=== PATIENT | female | born 1960 | race Caucasian/White ===

== ENCOUNTER → 2016-06-15 | Day surgery (SDC) | payer BC, MEDICARE ==
[~2016-06-15] MED LIST: ASPIRIN81 M2 PO; BENTYL20 M1 PO; CELEXA20 MG PO; DOXEPIN HCL25 MG PO; ESTRADIOL1 MG PO; FENOFIBRATE160 MG PO; FLEXERIL PO; FLEXERIL10 MG PO; GLUCOPHAGE500 MG; GLUCOPHAGE500 MG PO; LEVOTHYROXINE175 MCG PO; LEVOXYL; LOVAZA1 G PO; NAPROXEN500 M1 PO; NORCO 10/325 TA1 TAB PO; OMEGA-31000 M1 PO; OXYCODONE-ACET1 EAC1 PO; PHENERGAN25 M1 PO; PREMARIN; PROPRANOLOL HCL10 MG PO; SYNTHROID125 PO; TOPAMAX PO; TOPROL XL50 MG PO; TRIGLIDE160 M1 PO; VICODIN 5/500 T1 TAB; VITAMIN B122500 MCG PO; VITAMIN D1000 UNI1 PO; WELLBUTRIN PO; WELLBUTRIN XL150 M1 PO; ZESTRIL2.5 M1 PO; ZETIA; [UNRECOGNIZED DRUG - REMARK]
--- NOTE | ~2016-06-15 | OR ---
Unit #: [id number] #: [id number] Patient: ZAHRA PERAZA [id number] [address] [address] [id number] O MR#: [id number] NAME: ZAHRA PERAZA ROOM: Date of Procedure: 06/15/2016 Admission Date: 06/15/2016 Surgeon: Bret Keith M.D. : 1960 Attending Physician: Bret Keith M.D. Primary Care Physician: Sathya Galan M.D. OPERATIVE REPORT PREOPERATIVE DIAGNOSES Thoracic back pain, thoracic radiculopathy, thoracic disk herniation. POSTOPERATIVE DIAGNOSES Thoracic back pain, thoracic radiculopathy, thoracic disk herniation. PROCEDURE PERFORMED Thoracic epidural steroid injection with intravenous sedation and fluoroscopic guidance for needle localization. INDICATIONS FOR PROCEDURE The patient is a 55-year-old female with previously mentioned diagnosis. She also has back issues following a lumbar fusion and primary issue now there was symptoms consistent with a thoracic radiculopathy due to known T11-12 disk herniation. Plan is give the patient a trial of epidural steroids after having failed other attempts of conservative treatment. Risks and benefits of all have been reviewed. DESCRIPTION OF PROCEDURE The patient was placed in a seated position. Standard monitors were applied. 2 mg of Versed were given for sedation and anxiolysis, which were adequate. Vital signs remained stable. Sterile prep and drape then of the thoracolumbar area was performed. The skin then at the T11-T12 level was localized with 1% lidocaine. An 18-gauge [employer] needle was advanced via loss of resistance technique and fluoroscopic guidance in toward the epidural space. The patient did not complain of pain or paresthesia during needle advancement. After confirming proper positioning with fluoroscopy and radiographic contrast, 80 mg of Depo-Medrol and 4 mL of 0.125% bupivacaine were deposited. The patient tolerated the procedure otherwise well and was discharged to the recovery room in stable condition. Dictated by... Bret Keith M.D. LHP/modl TD: 06/16/2016 02:18 JOB #: [id number] Unit #: [id number] #: [id number] Patient: ZAHRA PERAZA OPERATIVE REPORT Page 1 of 1 X Bret Keith MD X PROCEDURE OPERATIVE NOTE
== END | disposition home or self-care (01) ==
LOC: CCSC 10:01
DX: M51.14 Intervertebral disc disorders with radiculopathy, thoracic region (principal); E11.9 Type 2 diabetes mellitus without complications
CPT/HCPCS: 82947; J1040; J2250

== ENCOUNTER → 2016-06-22 | Day surgery (SDC) | payer BC, MEDICARE ==
--- NOTE | ~2016-06-22 | OR ---
Unit #: [id number] #: [id number] Patient: ZAHRA PERAZA [id number] [address] [place], [place] [address] [id number] O MR#: [id number] NAME: ZAHRA PERAZA ROOM: Date of Procedure: 06/22/2016 Admission Date: 06/22/2016 Surgeon: Bret Keith M.D. : 1960 Attending Physician: Bret Keith M.D. Primary Care Physician: Sathya Galan M.D. OPERATIVE REPORT PREOPERATIVE DIAGNOSES Thoracic disk herniation, thoracic radiculopathy, back pain. POSTOPERATIVE DIAGNOSES Thoracic disk herniation, thoracic radiculopathy, back pain. PROCEDURE PERFORMED Thoracic epidural steroid injection with intravenous sedation under fluoroscopic guidance for needle localization. HISTORY The patient is a 55-year-old female with mid back pain with thoracic radiculopathy, radiating down toward her hips. She has known T11-T12 disk herniation. She failed to settle with conservative treatment. The plan is to give a trial of epidural steroids. Initial injection at the T12 level did not result in substantial change in her symptom complex. We are going to proceed with a repeat injection today at T11, so that it would work somewhat better for her. DESCRIPTION OF PROCEDURE The patient was placed in a seated position. Standard monitors were applied. Sterile prep and drape then of the thoracolumbar area was performed. The skin then at the T11 level was localized with 1% lidocaine. An 18-gauge [employer] needle was then advanced via loss of resistance technique and fluoroscopic guidance in toward the epidural space. After confirming proper positioning with fluoroscopy and radiographic contrast, 80 mg of Depo-Medrol and 4 mL of 0.125% bupivacaine were deposited. The patient tolerated the procedure otherwise well and was discharged to recovery room in stable condition. Dictated by... Adrianna Voss/rolly TD: 06/22/2016 12:11 JOB #: [id number] Unit #: [id number] #: [id number] Patient: ZAHRA PREAZA OPERATIVE REPORT Page 1 of 1 X Bret Keith MD X PROCEDURE OPERATIVE NOTE
== END | disposition home or self-care (01) ==
LOC: CCSC 10:06
DX: M51.14 Intervertebral disc disorders with radiculopathy, thoracic region (principal); E11.9 Type 2 diabetes mellitus without complications; Z88.5 Allergy status to narcotic agent; Z88.0 Allergy status to penicillin; Z88.2 Allergy status to sulfonamides; Z79.899 Other long term (current) drug therapy
CPT/HCPCS: 82947; J1040; J2250

== ENCOUNTER → 2016-06-29 | Day surgery (SDC) | payer BC, MEDICARE ==
--- NOTE | ~2016-06-29 | OR ---
Unit #: [id number] #: [id number] Patient: ZAHRA PERAZA [id number] [address] [address] [id number] O MR#: [id number] NAME: ZAHRA PERAZA ROOM: Date of Procedure: 06/29/2016 Admission Date: 06/29/2016 Surgeon: Bret Keith M.D. : 1960 Attending Physician: Bret Keith M.D. Primary Care Physician: Sathya Galan M.D. PROCEDURE OPERATIVE NOTE PREOPERATIVE DIAGNOSIS Thoracic disc herniation, back pain, thoracic radiculopathy. POSTOPERATIVE DIAGNOSIS Thoracic disc herniation, back pain, thoracic radiculopathy. PROCEDURE PERFORMED Thoracic epidural steroids injections, intravenous sedation, fluoroscopic guidance and needle localization. HISTORY The patient is a 55-year-old female admitted with back pain due to thoracic disc herniation at T11-12 level. She has failed conservative treatment. A decision made to give a trial of epidural steroids. (1) treatment over the last several weeks (2) in her symptoms complex. Patient had good partial improvement of pathology, symptomatology, and available options. Will proceed with final injections today. DESCRIPTION OF PROCEDURE The patient was placed in a seated position. Standard monitors were applied. 2 mg of Versed were given for sedation and anxiolysis, which were adequate. Vital signs remained stable. Sterile prep and drape then of the thoracolumbar area was performed. The skin then at the T11 level was localized with 1% lidocaine just to the right of the midline. An 18-gauge [employer] needle was then advanced via right paramedian approach and loss of resistance technique and toward the epidural space. After confirming proper positioning with fluoroscopy and radiographic contrast, 80 mg of Depo-Medrol and 4 mL of 0.125% bupivacaine were deposited. The patient tolerated the procedure otherwise well and was discharged to the recovery room in stable condition. Dictated by... Adrianna Voss/ellen TD: 06/29/2016 12:21 JOB #: [id number] Unit #: [id number] #: [id number] Patient: ZAHRA PERAZA CHRISTINE PROCEDURE OPERATIVE NOTE Page 1 of 1 X Bret Kieth MD X PROCEDURE OPERATIVE NOTE
== END | disposition home or self-care (01) ==
LOC: CCSC 10:10
DX: M51.14 Intervertebral disc disorders with radiculopathy, thoracic region (principal); E11.9 Type 2 diabetes mellitus without complications; Z98.1 Arthrodesis status; Z88.5 Allergy status to narcotic agent; Z88.0 Allergy status to penicillin; Z88.2 Allergy status to sulfonamides; Z79.84 Long term (current) use of oral hypoglycemic drugs; Z79.82 Long term (current) use of aspirin; Z79.891 Long term (current) use of opiate analgesic; Z79.899 Other long term (current) drug therapy
CPT/HCPCS: 82947; J1040; J2250